=== PATIENT | male | born 1960 | race Caucasian/White ===

== ENCOUNTER 2017-07-04 13:30 | Emergency (ER) | payer MEDICAID, OTHER ==
[2017-07-04] MEDS: SOD CHLORIDE 0.9% 1,000 ML IV ×2 (15:08→15:58)
[2017-07-04 15:16] LABS: MODE ROOM AIR; MetHgb Venous 0 %; Sample Type Blood venous; Site OTHER; Venous COHb 0.9 %; Venous Fraction OxyHgb 50.7 %; Venous Oxygen Sat 51.2 mmHG (55.0-75.0); Venous Total Hemglobin 16.1 g/dl
[2017-07-04 15:29] LABS: ADD MAN DIFF? NO
[2017-07-04 15:31] LABS: ABNORMAL IP MESSAGE 1; BASOPHIL # 0.1 10^3/ul (0.0-0.1); BASOPHILS % 0.2 % (0.0-2.0); HEMATOCRIT 45.2 % (42.0-52.0); LYMPHOCYTES # 1.7 10^3/ul (0.8-2.9); MEAN CORPUSCULAR HEMOGLOBIN 30.6 pg (29.0-33.0); MEAN CORPUSCULAR HGB CONC 35.4 g/dl (32.0-37.0); MEAN CORPUSCULAR VOLUME 86.4 fl (82.0-101.0); MEAN PLATELET VOLUME 9.3 fl (7.4-10.4); MONOCYTE # 2.5 10^3/ul (0.3-0.9); MONOCYTES % 10.4 % (0.0-11.0); NEUTROPHIL # 19.7 10^3/ul (1.6-7.5); NEUTROPHILS % 81.7 % (39.0-77.0); PLATELET COUNT 363 10^3/UL (140-415); POSITIVE DIFF @See below; RED BLOOD COUNT 5.23 10^6/ul (4.70-6.10); RED CELL DISTRIBUTION WIDTH 11.8 % (11.5-14.5)
[2017-07-04 15:31] LABS: WHITE BLOOD COUNT 24.1 10^3/ul (4.8-10.8)
[2017-07-04 15:46] LABS: INR 0.92; PROTIME 12.4 Sec (11.9-14.9)
[2017-07-04 15:52] LABS: ALANINE AMINOTRANSFERASE 39 IU/L (13-69); ALBUMIN 4.5 g/dl (3.3-4.9); ALBUMIN/GLOBULIN RATIO 1.09; ALKALINE PHOSPHATASE 173 IU/L (42-121); ANION GAP 24 (8-16); ASPARTATE AMINO TRANSFERASE 27 IU/L (15-46); BILIRUBIN,INDIRECT 0.3 mg/dl (0-1.1); BILIRUBIN,TOTAL 0.3 mg/dl (0.2-1.3); BLOOD UREA NITROGEN 18 mg/dl (7-20); CALCIUM 9.6 mg/dl (8.4-10.2); CARBON DIOXIDE 22 mmol/L (21-31); CHLORIDE 92 mmol/L (97-110); CREATININE 0.74 mg/dl (0.61-1.24); POTASSIUM 5.4 mmol/L (3.5-5.1); SODIUM 133 mmol/L (135-144); TOTAL PROTEIN 8.6 g/dl (6.1-8.1)
[2017-07-04] MEDS: CEFTRIAXONE 1 GM/50 ML (PMX) 50 ML IVPB (15:58)
[2017-07-04 16:04] LABS: B-TYPE NATRIURETIC PEPTIDE 125 PG/ML (0-125); TROPONIN-I < 0.012 ng/ml (0.00-0.12)
[2017-07-04 16:07] LABS: GLUCOSE 475 mg/dl (70-220)
[2017-07-04] MEDS: AZITHROMYCIN 500MG/NS (PMX) 250 ML IV (16:14)
[2017-07-04] MEDS: LEVALBUTEROL (NEB) 0.63 MG/3 ML AMP INH (16:17)
[2017-07-04] MEDS: IPRATROPIUM (NEB) 0.5 MG/2.5 ML AMP NEB (16:17)
[2017-07-04 16:19] LABS: LACTIC ACID 1.3 mmol/L (0.5-2.0)
[2017-07-04 16:40] LABS: ADD UMIC NO; UR ASCORBIC ACID NEGATIVE (NEGATIVE); UR BILIRUBIN (Dip) NEGATIVE (NEGATIVE); UR BLOOD (Dip) NEGATIVE (NEGATIVE); UR CLARITY CLEAR (CLEAR); UR COLOR STRAW (YELLOW); UR GLUCOSE (Dip) 3+ mg/dL (NEGATIVE); UR KETONES (Dip) 2+ mg/dL (NEGATIVE); UR LEUKOCYTE ESTERASE (Dip) NEGATIVE Leu/ul (NEGATIVE); UR NITRITE (Dip) NEGATIVE (NEGATIVE); UR TOTAL PROTEIN (Dip) NEGATIVE (NEGATIVE); UR UROBILINOGEN (Dip) NEGATIVE (NEGATIVE)
[2017-07-04] MEDS: INSULIN LISPRO 100 UNIT/ML VIAL SC (17:15)
[2017-07-04 17:49] LABS: ANION GAP 19 (8-16); BLOOD UREA NITROGEN 14 mg/dl (7-20); CALCIUM 8.3 mg/dl (8.4-10.2); CARBON DIOXIDE 19 mmol/L (21-31); CHLORIDE 102 mmol/L (97-110); CREATININE 0.65 mg/dl (0.61-1.24); GLUCOSE 296 mg/dl (70-220); POTASSIUM 4.5 mmol/L (3.5-5.1); SODIUM 135 mmol/L (135-144)
== END 2017-07-04 18:16 | disposition home or self-care (01) ==
LOC: FTE 13:30
DX: J18.9 Pneumonia, unspecified organism (principal); E11.65 Type 2 diabetes mellitus with hyperglycemia; R07.9 Chest pain, unspecified
CPT/HCPCS: 36415; 71045; 80048; 80053; 81003; 82803; 82962; 83605; 83880; 84484; 85025; 85610; 85730; 87040; 87400; 93005; 94664; 96372; 96374; 96375; 99285-25